=== PATIENT | female | born 1945 | race Caucasian/White ===

== ENCOUNTER 2023-07-20 13:03 | Outpatient (AMB) | payer MEDICARE, SELFPAY ==
--- NOTE | 2023-07-20 13:15 | A.SPINEOV_ITS ---
Intake Intake Visit Reasons: Back pain Intake Note: Mrs. Gaitan is here today c/o low back pain radiating into both legs. MRI done @ [facility]brought disc. Folder Machine Adjuster Required: No Assessment & Plan Assessment & Plan (1) Osteoporotic compression fracture of spine with routine healing: Code(s): M80.88XD - Other osteoporosis with current pathological fracture, vertebra(e), subsequent encounter for fracture with routine healing (2) Neurogenic claudication due to lumbar spinal stenosis: Code(s): M48.062 - Spinal stenosis, lumbar region with neurogenic claudication Plan Dear colleague Thank you for referring Rubi Gaitan to the office today with a chief complaint of bilateral leg pain and numbness. HPI: This 78-year-old female developed significant pain in her coccyx radiating down both legs with numbness from the knees down. The numbness is constant. The pain comes with walking and standing. She can only stand for a very short period and can hardly walk. In the kitchen she has to sit down on a chair. Leaning forward improves the symptoms. She an extensive bowel or bladder surgery in 2020 and she states that that is when the pain in the coccyx started. She saw Dr. Jean,s automotive service assistant who focused on several lumbar compression fractures. They come to see me for a 2nd opinion. She tried physical therapy which made her symptoms worse. Currently she is using Aleve PMH: Hypertension, hypothyroid Kristin, hysterectomy, bowel surgery, bowel and bladder surgery in 2020 Medications: Metoprolol, levothyroxine, atorvastatin, temazepam, Symbicort, Zyrtec, aspirin 81 mg, multivitamins, vitamin B12 and Aleve Allergies: Sulfa drugs, codeine and IV dye Social history: . She smokes half pack a day Physical Exam: Pleasant female in a wheelchair. There is objective numbness from the knee down. Straight leg raise is negative bilaterally. There is pain on palpation over the coccyx. No motor deficits. No pathological reflexes Radiological Studies: MRI done at [facility] on on 06/05/2023 shows multiple compression fractures of L1, L2 and L4 without kyphosis. In addition there is moderate spinal stenosis at L3-4 and L4-5. A standing x-ray of the lumbar spine shows no thoracolumbar deformity. Impression/Plan: This patient is suffering from neurogenic claudication. I think the compression fractures are asymptomatic and she even denies have not had severe back pain in the past. She must be osteopenic/osteoporotic. I offered her a unilateral L3-4 and L4-5 lumbar decompression to decompress the thecal sac in an attempt to address the bilateral leg pain. I described the procedure and she was proceed. She will get preoperative clearance from her primary care physician. She scheduled for September 12. Thank you for allowing me to participate in your patients care. total time spent was 50 minutes in counseling ,coordination of plan, personal review of imaging, surgical decision making and subsequent plan Pavan Merritt MD, PhD Spine Fellowship Trained Neurosurgeon Director, [facility] Coding Level of Care Code New Pt Level 4 (90788) Diagnoses Osteoporotic compression fracture of spine with routine healing M80.88XD Neurogenic claudication due to lumbar spinal stenosis M48.062
== END 2023-07-20 14:15 | disposition home or self-care (01) ==
PROVIDERS: Visit Provider Neurological Surgery
DX: M80.88XD Other osteoporosis with current pathological fracture, vertebra(e), subsequent encounter for fracture with routine healing (principal); M48.062 Spinal stenosis, lumbar region with neurogenic claudication
CPT/HCPCS: 99204

== ENCOUNTER → 2023-07-20 13:03 | Outpatient (BNVA) | payer MEDICARE, SELFPAY | PROVIDERS: Visit Provider Neurological Surgery ==

== ENCOUNTER 2023-09-29 10:19 | Day surgery (SDC) | payer MEDICARE, SELFPAY ==
[2023-09-12 11:11] VITALS: BMI 21.9
--- NOTE | 2023-09-12 14:40 | HO.ANESPROP2 ---
Documented by User: Khushi Vizcaino NP 09/28/23 12:15 HPI - Anesthesia Eval Consult details Narrative: 78yo F for L3-4,L4-5 Microlumbar discectomy, 09/29/23 Medically optimized. Hx hyperkalemia, but normalized with last draw PMFSH Active Problems Active Problems: All Active Problems (Updated 09/12/23 @ 11:01 by Hazel Mejía RN) Neurogenic claudication due to lumbar spinal stenosis (Acute) Osteoporotic compression fracture of spine with routine healing (Acute) Past Medical History Medical History History of tobacco use GERD (gastroesophageal reflux disease) Thyroid disease Hx of transfusion of packed red blood cells Numbness Post-nasal drip Insomnia Asthma Elevated cholesterol HTN (hypertension) Surgical History Surgical History Hx of thyroidectomy Hx of hysterectomy Hx of bladder repair surgery History of colon surgery Social History Social History Are you a primary special needs caregiver to a significant other at home: No Do you presently have visiting nurse or other home services: No Patient Tobacco Use Status: Current everyday Tobacco user Tobacco use type: Cigarette Cigarette Packs Per Day: 0.5 Cigarettes Per Day: 10.0 Use of substances other than those prescribed or required for medical reasons: No Have you been hit, kicked, punched, or otherwise hurt by someone within the past year? If so, by whom?: No Advance Directives: No Advance Directives Information Provided: Yes Advance Directives on File: No Recently lost weight without trying: No Eating poorly because of decreased appetite: No Nutrition Risks: No Nutritional Risk Patient : No : No Poor oral hygiene: Yes (partial upper and lower dentures) Meds Allergies Allergy/AdvReac Type Severity Reaction Status Date / Time codeine Allergy Vomiting Verified 09/12/23 10:30 Iodinated Contrast Media Allergy Fainting Verified 09/12/23 10:30 [Contrast Dye] Sulfa (Sulfonamide Allergy Nausea Verified 09/12/23 10:28 Antibiotics) Home Medications Medication Instructions Recorded Confirmed Last Taken Type aspirin 81 mg tablet,delayed 81 mg PO DAILY 09/12/23 09/12/23 Unknown History release atorvastatin 10 mg tablet 10 mg PO BEDTIME 09/12/23 09/12/23 Unknown History budesonide-formoterol HFA 160 1 puff inhalation BID PRN Wheezing 09/12/23 09/12/23 Unknown History mcg-4.5 mcg/actuation aerosol inhaler (Symbicort) cetirizine 10 mg tablet (Zyrtec) 10 mg PO DAILY 09/12/23 09/12/23 Unknown History levothyroxine 88 mcg tablet 88 mcg PO DAILY 09/12/23 09/12/23 Unknown History metoprolol succinate 50 mg 75 mg PO DAILY 09/12/23 09/12/23 Unknown History tablet,extended release 24 hr multivitamin 1 tab PO DAILY 09/12/23 09/12/23 Unknown History naproxen 500 mg tablet 500 mg PO BID PRN Pain 09/12/23 09/12/23 Unknown History temazepam 15 mg capsule 15 mg PO BEDTIME 09/12/23 09/12/23 Unknown History Exam Height,Weight and Vital Signs: Height 5 ft Weight 50.802 kg Pertinent Lab Results Pertinent Lab Results: CBC and BMP from outside facility 07/2022 WNL Narrative Narrative: EKG 07/2023 ST @ 103 Marked LAD ? Anterior infarct (No change from 03/2021 per PCP interpretation) Assessment and Plan Assessment Anesthesia Assessment: Chart Reviewed Documented by User: Robbi Garcia MD 09/29/23 15:01 [facility] Past Medical History Medical History History of tobacco use GERD (gastroesophageal reflux disease) Thyroid disease Hx of transfusion of packed red blood cells Numbness Post-nasal drip Insomnia Asthma Elevated cholesterol HTN (hypertension) Family History Family history of problems with anesthesia: No Surgical History Surgical History Hx of thyroidectomy Hx of hysterectomy Hx of bladder repair surgery History of colon surgery History of Problems with Anesthesia: No Social History Social History Are you a primary special needs caregiver to a significant other at home: No Do you presently have visiting nurse or other home services: No Patient Tobacco Use Status: Current everyday Tobacco user Tobacco use type: Cigarette Cigarette Packs Per Day: 0.5 Cigarettes Per Day: 10.0 Use of substances other than those prescribed or required for medical reasons: No Have you been hit, kicked, punched, or otherwise hurt by someone within the past year? If so, by whom?: No Advance Directives: No Advance Directives Information Provided: Yes Advance Directives on File: No Recently lost weight without trying: No Eating poorly because of decreased appetite: No Nutrition Risks: No Nutritional Risk Patient : No : No Poor oral hygiene: Yes (partial upper and lower dentures) Meds Allergies Allergy/AdvReac Type Severity Reaction Status Date / Time codeine Allergy Vomiting Verified 09/12/23 10:30 Iodinated Contrast Media Allergy Fainting Verified 09/12/23 10:30 [Contrast Dye] Sulfa (Sulfonamide Allergy Nausea Verified 09/12/23 10:28 Antibiotics) Home Medications Medication Instructions Recorded Confirmed Last Taken Type aspirin 81 mg tablet,delayed 81 mg PO DAILY 09/12/23 09/12/23 Unknown History release atorvastatin 10 mg tablet 10 mg PO BEDTIME 09/12/23 09/12/23 Unknown History budesonide-formoterol HFA 160 1 puff inhalation BID PRN Wheezing 09/12/23 09/12/23 Unknown History mcg-4.5 mcg/actuation aerosol inhaler (Symbicort) cetirizine 10 mg tablet (Zyrtec) 10 mg PO DAILY 09/12/23 09/12/23 Unknown History levothyroxine 88 mcg tablet 88 mcg PO DAILY 09/12/23 09/12/23 Unknown History metoprolol succinate 50 mg 75 mg PO DAILY 09/12/23 09/12/23 Unknown History tablet,extended release 24 hr multivitamin 1 tab PO DAILY 09/12/23 09/12/23 Unknown History naproxen 500 mg tablet 500 mg PO BID PRN Pain 09/12/23 09/12/23 Unknown History temazepam 15 mg capsule 15 mg PO BEDTIME 09/12/23 09/12/23 Unknown History Exam Airway Mallampati Class: II TM Dist: >3cm Neck ROM: Full Loose/Missing/Broken Teeth: Yes Assessment and Plan Assessment Anesthesia Assessment: Anesthesia Plan Discussed Final Anesthetic Review Family History of Problems with Anesthesia: No History of Problems with Anesthesia: No NPO: Yes ASA Class: III Final Preanesthetic Review: No Changes in Pt Med Stat, Meds/Allgs Chart Reviewed, Consent Obtained/Reviewed and Anes Risks/Benef Reviewed Patient Risk: Intermediate Procedure Risk: Low Anesthetic Plan Anesthetic Plan: GA Disposition: Standard PACU
[2023-09-29] VITALS (14 sets, daily range): BP systolic 123–158; BP diastolic 54–66; PULSE 83–96; RESP 12–20; TEMP 36.3–36.4; O2SAT 92–98
--- NOTE | ~2023-09-29 | FL_ITS ---
EXAMINATION: XR FLUOROSCOPY WITH IMAGES CLINICAL INFORMATION: L3-L4, L4-L5 microlumbar discectomy. COMPARISON: None available. TECHNIQUE: Fluoroscopy Supervised By: Dr. Pavan Merritt. Fluoroscopy Time: Less than 0.1 minute. Cumulative Dose: 1.55 mGy. DAP: 0.424 Gycm2. Images: 2. FINDINGS: Lateral images of the lumbar spine demonstrate surgical instruments posterior to the L3-L4 and L4-L5 disc spaces. FL/FL guidance in OR IMPRESSION: Fluoroscopy guidance for lumbar surgery.
--- NOTE | 2023-09-29 07:20 | MHC.SHP ---
Pre-Procedural Eval Section A Date of Service: 09/29/23 The patient is an INPATIENT: No Changes since office visit: No Cold of Flu in the past 2 weeks, No New Medical Problems, No Changes in Medication and No Patient answered all questions The History & Physical has been completed within 30 days and I have reviewed it.: No Section B Chief Complaint: Intervertebral disc disorders with radiculopathy, Allergies: Allergies Allergy/AdvReac Type Severity Reaction Status Date / Time codeine Allergy Vomiting Verified 09/12/23 10:30 Iodinated Contrast Media Allergy Fainting Verified 09/12/23 10:30 [Contrast Dye] Sulfa (Sulfonamide Allergy Nausea Verified 09/12/23 10:28 Antibiotics) Review of Systems Sugical H&P ROS: Negative: Constitution, Cardiovascular, Respiratory, Neurological, Psychiatric, Hem-Onc, Allergic/Immunologic, Gastrointestinal, Genitourinary, Musculoskeletal, Integumentary, Endocrine and Eyes/Ears/Nose/Throat Exam Surgical H&P Exam: Not Evaluated: HEENT, Not Evaluated: Heart, Not Evaluated: Lungs, Not Evaluated: Extremities, Not Evaluated: Abdomen, Not Evaluated: Skin and Not Evaluated: Neurological Plan Diagnosis/Plan: Unchanged left L3-4, L4-5 decompression Time Spent With Patient Time: Total time managing care of this patient today _4___ minutes.
--- NOTE | 2023-09-29 09:34 | HO.ANESPROP2 ---
[facility] Active Problems Active Problems: All Active Problems (Updated 09/12/23 @ 11:01 by Hazel Mejía RN) Neurogenic claudication due to lumbar spinal stenosis (Acute) Osteoporotic compression fracture of spine with routine healing (Acute) Past Medical History Medical History History of tobacco use GERD (gastroesophageal reflux disease) Thyroid disease Hx of transfusion of packed red blood cells Numbness Post-nasal drip Insomnia Asthma Elevated cholesterol HTN (hypertension) Functional capacity: independent ambulation Patient : No Family History Family history of problems with anesthesia: No Surgical History Surgical History Hx of thyroidectomy Hx of hysterectomy Hx of bladder repair surgery History of colon surgery History of Problems with Anesthesia: No Social History Social History Are you a primary healthcare insurance sales agent to a significant other at home: No Do you presently have visiting nurse or other home services: No Patient Tobacco Use Status: Current everyday Tobacco user Tobacco use type: Cigarette Cigarette Packs Per Day: 0.5 Cigarettes Per Day: 10.0 Use of substances other than those prescribed or required for medical reasons: No Have you been hit, kicked, punched, or otherwise hurt by someone within the past year? If so, by whom?: No Advance Directives: No Advance Directives Information Provided: No Advance Directives on File: No Recently lost weight without trying: No Eating poorly because of decreased appetite: No Nutrition Risks: No Nutritional Risk Patient : No : No Poor oral hygiene: Yes (partial upper and lower dentures) Meds Allergies Allergy/AdvReac Type Severity Reaction Status Date / Time codeine Allergy Vomiting Verified 09/12/23 10:30 Iodinated Contrast Media Allergy Fainting Verified 09/12/23 10:30 [Contrast Dye] Sulfa (Sulfonamide Allergy Nausea Verified 09/12/23 10:28 Antibiotics) Home Medications Medication Instructions Recorded Confirmed Last Taken Type aspirin 81 mg tablet,delayed 81 mg PO DAILY 09/12/23 09/12/23 Unknown History release atorvastatin 10 mg tablet 10 mg PO BEDTIME 09/12/23 09/12/23 Unknown History budesonide-formoterol HFA 160 1 puff inhalation BID PRN Wheezing 09/12/23 09/12/23 Unknown History mcg-4.5 mcg/actuation aerosol inhaler (Symbicort) cetirizine 10 mg tablet (Zyrtec) 10 mg PO DAILY 09/12/23 09/12/23 Unknown History levothyroxine 88 mcg tablet 88 mcg PO DAILY 09/12/23 09/12/23 Unknown History metoprolol succinate 50 mg 75 mg PO DAILY 09/12/23 09/12/23 Unknown History tablet,extended release 24 hr multivitamin 1 tab PO DAILY 09/12/23 09/12/23 Unknown History naproxen 500 mg tablet 500 mg PO BID PRN Pain 09/12/23 09/12/23 Unknown History temazepam 15 mg capsule 15 mg PO BEDTIME 09/12/23 09/12/23 Unknown History Exam Height,Weight and Vital Signs: Height 5 ft Weight 50.802 kg Airway Mallampati Class: II TM Dist: >3cm Neck ROM: Full Heart: RRR Lungs: CTA Assessment and Plan Assessment Anesthesia Assessment: Anesthesia Plan Discussed and Smoking Cess. Discussed Final Anesthetic Review Family History of Problems with Anesthesia: No History of Problems with Anesthesia: No NPO: Yes ASA Class: II Final Preanesthetic Review: Meds/Allgs Chart Reviewed, Consent Obtained/Reviewed and Anes Risks/Benef Reviewed Patient Risk: Intermediate Procedure Risk: Intermediate Anesthetic Plan Anesthetic Plan: GA Disposition: Standard PACU
--- NOTE | 2023-09-29 13:30 | W.PM.OPN ---
Operative Note Operative Note Date of Service: 09/29/23 Narrative: Preoperative Diagnosis: L3-4 and L4-5 spinal stenosis/lateral recess stenosis/neural foraminal stenosis Operation: bilateral L3-4 and L4-5 Laminotomy, Partial facetectomy and foraminotomy with use of microscope Consent Informed Consent was obtained for this operation. I have explained the nature, purpose and benefits of the operation. I have discussed the risks and benefit of the operation including possible complications or adverse events with patient/family. Alternative(s) were discussed with the patient with their relative benefits and risks as well as the consequences of not accepting the operation were included in obtaining consent. Surgeon: LEÓN MAST MD, PHD Procedure Assisted By: Jorden Moon Description of Procedure this 78-year-old female suffer from neurogenic claudication. MRI shows moderate central stenosis L3-4 and L4-5. The patient was offered a decompression. The procedure complications were explained. The patient was consented. The patient was brought to the operating room and endotracheally intubated. The patient was turned in prone position on the Marciano frame. Prep and drape was done followed by timeout. The Physician dental front office assistant provided access. A mid lumbar incision was made followed by release of the paravertebral muscle On the left side to expose the L3-4 and L4-5 laminae and facet joints. An intraoperative x-ray was obtained to confirm the correct level. The microscope was brought in. I took over the procedure. The high-speed drill was used to do a left L3-4 laminotomy until flavum ligament was reached. A #2 Kerrison was used to expand the laminotomy near flush to the pedicles and to include a partial facetectomy. The flavum ligament was opened and resected with a #3 Kerrison to decompress the underlying thecal sac. The flavum ligament was removed to decompress the lateral recess and the exiting L4 nerve root. The patient was turned contralaterally. This spinous process was undercut after which the contralateral side was decompressed. then attention was turned to the L4-5 interspace. A left L4-5 laminotomy was done, including a partial facetectomy. Significant hypertrophied ligament was opened and resected decompressed the thecal sac and exiting L5 nerve root. Patient was turned again contralaterally and spinous process was undercut of the which contralateral side was decompressed. Good decompression of the thecal sac and exiting nerve root was obtained expressing itself as return of pulsations.The microscope was removed. Hemostasis was done. The physician dental front office assistant close the Incision in 2 layers. Steri-Strips were used to approximate incision. An OpSite with Tegaderm was used to cover the incision. All sponge needle counts were correct. Patient was extubated and transported in stable is to recovery room. Anesthesia: General Estimated Blood Loss (ml): 20 mL Complications: None Duration of Surgery: Under 70 Minutes Postoperative Plan: Discharge to home
--- NOTE | 2023-09-29 13:35 | PM.DS ---
DS: Providers Provider Date of Service: 09/29/23 Primary care physician: Nonstaff Physician DS: Summary Time Attestation Discharge coordination time: Less than 30 minutes Quality: Safe Use of Opioids Does Pt have an Active Cancer Diagnosis on the Problem List?: No Quality: Stroke Does the patient have a stroke diagnosis?: No Physical Exam Vital Signs: Vital Signs: Last Vital Signs Temp 97.4 F 09/29/23 11:53 Pulse 88 09/29/23 11:53 Resp 18 09/29/23 11:53 BP 158/66 H 09/29/23 11:53 Pulse Ox 97 09/29/23 11:53 O2 Del Method Room Air 09/29/23 11:53 BMI result Body Mass Index 21.9 Discharge Plan Discharge Patient Disposition: Home, Self-Care Referrals: Physician,Nonstaff [Primary Care Provider] - 1 Week Discharge Medications: New oxycodone 5 mg tablet 5 mg PO Q8H PRN (Reason: severe pain (scale score 7-10)) Qty: 21 0RF No Action multivitamin Tablet 1 tab PO DAILY cetirizine [Zyrtec] 10 mg Tablet 10 mg PO DAILY atorvastatin 10 mg tablet 10 mg PO BEDTIME metoprolol succinate 50 mg Tablet Extended Release 24 Hr 75 mg PO DAILY aspirin 81 mg Tablet,Delayed Release (Dr/Ec) 81 mg PO DAILY levothyroxine 88 mcg Tablet 88 mcg PO DAILY temazepam 15 mg capsule 15 mg PO BEDTIME naproxen 500 mg tablet 500 mg PO BID PRN (Reason: Pain) budesonide-formoterol [Symbicort] 160-4.5 mcg/actuation HFA aerosol inhaler 1 puff inhalation BID PRN (Reason: Wheezing) Discharge Orders: Discharge Order (Routine); Ordered 09/29/23 Ordered By: Jorden Schmidt Diet: Advance to usual diet Activity on Discharge: As tolerated Activity Restrictions/Additional Instructions: After your spinal surgery we ask you to observe the following restrictions/guidelines: Activity: It is normal to feel some discomfort as you increase your activity, but that will improve with time. We ask you avoid heavy lifting or acitivities that cause pain. As a general rule, 8lbs is a safe limit for lifting right after surgery. Walk as much as you feel comfortable but not to exhaustion. You will feel extra tired the first few days after surgery. Stay well hydrated. It is OK to walk up and down stairs You may return to driving when you are off narcotics (such as vicodin, oxycodone, dilaudid, etc), and you are back to normal functional capacity. If you have any concerns please check with office before driving. Return to work is specific to each patient and each surgery, so please speak with your doctor/PA at first follow up. Please bring paperwork such as FMLA at that time if you need it filled out. Medications: We will give you a short supply of narcotics after surgery (usually one weeks worth). If you need more please call the office but do not use more than prescribed. You will need to give our office 48 hours notice if you need narcotics refilled and we do not fill narcotics on weekends or evenings. If you are on a narcotic, it is a good idea to take a stool softener such as colace or senna to avoid constipation If you take blood thinner such as aspirin, Plavix, Coumadin, Effient, Eliquis etc for conditions such as Afib, DVT, Pulmonary embolus, coronary disease, stents etc please speak with your surgeon about specific details as to when you can resume these medications. You can resume NSAIDs on post op day 1 (eg: Motrin, Naproxen, etc). Follow up: Please call the office, , after surgery to arrange a 3 week follow up for wound check. Wound Care: You may remove your dressing on the first day after surgery. You may leave open to air. Please do not remove the steri strips underneath. they will fall off on their own in one week. IT IS NORMAL FOR THE WOUND TO OOZE OR BE BLOODY FOR A FEW DAYS AFTER SURGERY. IF THIS HAPPENS JUST PLACE NEW DRESSING OVER IT TO AVOID STAINING CLOTHES. You may shower on post op day # 1 We ask that you do not let the water soak the wound. If it does get wet, just towel dry lightly. Please do not scrub your incision or place any type of chemical/ointment on the wound. No tub baths, pools or jacuzzis for one month. If you have any leaking or redness from your wound, or fevers, please call the office.
== END 2023-09-29 15:13 | disposition home or self-care (01) ==
PROVIDERS: Visit Provider Neurological Surgery
PROC: (CPT 63047; principal; 2023-09-29 13:30)
DX: M51.16 Intervertebral disc disorders with radiculopathy, lumbar region (principal); M48.062 Spinal stenosis, lumbar region with neurogenic claudication; M80.88XD Other osteoporosis with current pathological fracture, vertebra(e), subsequent encounter for fracture with routine healing; I10 Essential (primary) hypertension; E78.00 Pure hypercholesterolemia, unspecified; E89.0 Postprocedural hypothyroidism; J45.909 Unspecified asthma, uncomplicated; Z79.51 Long term (current) use of inhaled steroids; Z79.1 Long term (current) use of non-steroidal anti-inflammatories (NSAID); Z79.82 Long term (current) use of aspirin; Z79.899 Other long term (current) drug therapy; Z91.041 Radiographic dye allergy status; Z88.2 Allergy status to sulfonamides; Z88.5 Allergy status to narcotic agent; Z98.890 Other specified postprocedural states; F17.210 Nicotine dependence, cigarettes, uncomplicated
CPT/HCPCS: 63047; 63048; J0131; J0690; J1885; J2405; J2704; J3010

== ENCOUNTER → 2023-09-29 10:19 | Outpatient (BNV) | payer MEDICARE, SELFPAY | PROVIDERS: Visit Provider Neurological Surgery | DX: M51.16 Intervertebral disc disorders with radiculopathy, lumbar region (principal) | CPT/HCPCS: 63047; 63048; 99499 ==

== ENCOUNTER 2024-04-20 15:02 | Outpatient (AMB) | payer MEDICARE, SELFPAY ==
--- NOTE | 2024-04-20 15:31 | A.SPINEOV_ITS ---
Intake Visit Reasons: back pain Intake Note: Mrs. Gaitan is here today c/o back pain. Etl Data Architect Required: No Allergies codeine Allergy (Verified 09/12/23 10:30) Vomiting Iodinated Contrast Media [Contrast Dye] Allergy (Verified 09/12/23 10:30) Fainting Sulfa (Sulfonamide Antibiotics) Allergy (Verified 09/12/23 10:28) Nausea Assessment & Plan Assessment & Plan (1) Cervical myelopathy: Code(s): G95.9 - Disease of spinal cord, unspecified Category: Medical Plan Dear colleague, On 04/20/2024, I saw Rubi Gaitan for bilateral lower leg numbness. She states that she had a fall from a bed top where she fell on her buttocks and then back on the floor. Since then she is complaining of bilateral lower leg numbness. She was seen at [facility] where an MRI of the lumbar spine was done which came back negative. She now has to walk with a cane due to balance problems. On exam, does complete numbness from the knees down. She has a Cristy reflex of her right hand. Remainder of the reflexes are low. An EMG done at [facility] shows chronic changes that are not an explanation for current neurological disease. In my opinion, this patient may have suffered a cervical spinal cord injury and an MRI of the cervical spine is indicated. I will order the MRI at [facility]. The patient will bring the CD when it is done for review. I spent 30 minutes in his consult to review EMG, MRI and discuss the plan. Pavan Merritt MD, PhD Spine Fellowship Trained Neurosurgeon Director, [facility] Orders: Orders MR cervical spine wo con Today G95.9 - Disease of spinal cord, unspecified Coding Level of Care Code Est Pt Level 4 (61063) Diagnoses Cervical myelopathy G95.9
== END 2024-04-20 15:56 | disposition home or self-care (01) ==
PROVIDERS: Visit Provider Neurological Surgery
DX: G95.9 Disease of spinal cord, unspecified (principal)
CPT/HCPCS: 99214

== ENCOUNTER → 2024-04-20 15:02 | Outpatient (BNVA) | payer MEDICARE, SELFPAY | PROVIDERS: Visit Provider Neurological Surgery | DX: G95.9 Disease of spinal cord, unspecified (principal) | CPT/HCPCS: 99212 ==